=== PATIENT | female | born 1970 | race Caucasian/White ===

== ENCOUNTER 2017-01-09 22:48 | Inpatient (IN) | payer MEDICAID, OTHER ==
[~2017-01-09] VITALS: Ht 160 cm; Wt 99.8 kg
[2017-01-09 23:00] VITALS: BP 142/87
[2017-01-10] VITALS (14 sets, daily range): BP systolic 97–146; BP diastolic 62–87
--- NOTE | 2017-01-10 00:30 | NUR ---
Patient ambulated to bed 04.
--- NOTE | 2017-01-10 00:35 | NUR ---
46 Y/O F W/C/O R LOWER ABD PAIN, N/V/D X YESTERDAY. DENIES ANY FEVER. PT STATES HAS A HX OF HTN BUT DOES NOT REMMEMBER THE NAME OF MEDS SHE TAKES FOR IT. PT STATES HER PAIN IS 10/10. ER MADE AWARE.
[2017-01-10] MEDS ORDERED: ONDANSETRON 4 MG/2 ML VIAL IVP ONE ×4 (00:50→09:12)
[2017-01-10] MEDS ORDERED: NACL 0.9% 1,000 ML IV ONE (00:50)
[2017-01-10] MEDS ORDERED: HYDROmorphone 1 MG/ML AMP IVP ONE ×2 (00:50→03:55)
--- NOTE | 2017-01-10 00:52 | NUR ---
Dr. Merritt evaluating patient at bedside.
[2017-01-10 01:02] LABS: HEMATOCRIT 37.9 % (36-48); HEMOGLOBIN 11.7 g/dL (12.0-16.0); MEAN CORPUSCULAR HEMOGLOBIN 23 pg (27-31); MEAN CORPUSCULAR HGB CONC 31 g/dL (33-37); MEAN CORPUSCULAR VOLUME 76 fL (80-94); PLATELET COUNT (AUTO) 290 K/uL (140-450); RED BLOOD CELL COUNT(AUTO) 5.02 MIL/uL (4.20-5.40); RED CELL DISTRIBUTION WIDTH 15.9 % (11.6-13.7)
[2017-01-10 01:18] LABS: ALBUMIN 3.6 g/dL (3.4-5.0); ANION GAP 16.2 (8-16); CALCIUM 8.6 mg/dL (8.5-10.1); CARBON DIOXIDE 23.5 mmol/L (21-32); CREATININE 1.1 mg/dL (0.6-1.3); POTASSIUM 3.7 mmol/L (3.5-5.1); TOTAL BILIRUBIN 1.1 mg/dL (0.0-1.0); TOTAL PROTEIN, SERUM 8.2 g/dL (6.4-8.2)
[2017-01-10 01:23] LABS: BAND % (MANUAL) 26 % (0-8); LYMPHOCYTES % (MANUAL) 6 % (20-46); MONOCYTES % (MANUAL) 2 % (5-12); NEUTROPHILS % (MANUAL) 66 (43-65)
[2017-01-10 01:26] LABS: INR 1.2 (0.8-1.2); PARTIAL THROMBOPLASTIN TIME 31.8 secs (22-35.6); PROTHROMBIN TIME 12.6 secs (10.8-13.4)
--- NOTE | 2017-01-10 01:40 | NUR ---
Patient taken to CT via wheelchair per tech.
--- NOTE | 2017-01-10 01:51 | NUR ---
Patient back from CT via wheelchair per tech.
--- NOTE | 2017-01-10 02:10 | NUR ---
PT RESTING IN BED, AWATING FOR RESULTS ON MONITOR, VSS. WILL CONT TO MONITOR.
[2017-01-10 03:09] LABS: LACTIC ACID 1.7 mmol/L (0.4-2.0)
--- NOTE | 2017-01-10 04:00 | NUR ---
Patient will be admitted to care of DR GIVENS. Admited to TELEMETRY. Will go to room 127B. Belongings list completed. Report to LAURO PRESSLEY.
[2017-01-10] MEDS ORDERED: NACL 0.9% 1,000 ML IV SCH (04:14)
[2017-01-10] MEDS ORDERED: ACETAMINOPHEN 325 MG TAB PO PRN ×2 (04:15→05:00)
[2017-01-10] MEDS ORDERED: DOCUSATE SODIUM 100 MG GELCAP PO PRN (04:15)
[2017-01-10] MEDS ORDERED: HYDROcodone/APAP 7.5/325 MG 1 TAB PO PRN (04:15)
[2017-01-10] MEDS ORDERED: MORPHINE SULFATE 2 MG/ML SYR IVP PRN (04:15)
[2017-01-10] MEDS ORDERED: PIPERACILLIN/TAZOBACTAM 4.5 GM in DEXTROSE 5% 100 ML IV ONE (04:15)
[2017-01-10] MEDS ORDERED: ONDANSETRON 4 MG/2 ML VIAL IM/IVP PRN (04:15)
[2017-01-10] MEDS ORDERED: PIPERACILLIN/TAZOBACTAM 2.25 GM VIAL IV ONE (04:25)
--- NOTE | 2017-01-10 05:10 | NUR ---
PT TRASFERRED VIA GURNEY TO TELEMETRY, MONITOR ON BED, VSS, NO S/S OF DISTRESS NOTED DURING TRASFER. ACCOMPANIED BY RN AND EMT.
--- NOTE | 2017-01-10 05:20 | NUR ---
ADMITTED A 46F FROM ER. CAME BY GILMAR. ACCOMPANIED BY . AWAKE ALERT AND ORIENTED X4. AMBULATORY. MED SURG PT. CAME DUE TO ABDOMINAL PAIN AND VOMITING X2 DAYS. DX: PERFORATED DIVERTICULITIS. ONLY HISTORY IS HYPERTENSION. V/S TAKEN STABLE. HAS IV ACCESS ON RT AC # 20, CLEAR AND PATENT. ZOSYN IV GIVEN IN ER. PLAN OF CARE DISCUSSED AND VERBALIZED UNDERSTANDING. ORIENTED TO HOSPITAL ROUTINES. CALL LIGHT PLACED WITHIN EASY REACH. KEPT NPO ORDERED. WILL FOLLOW [facility] ADMIT ORDERS.
[2017-01-10] MEDS ORDERED: BUPIVACAINE-MPF/EPI 0.25% 30 ML VIAL INJ ONE (05:56)
[2017-01-10] MEDS ORDERED: PIPERACILLIN/TAZOBACTAM 3.375 GM in DEXTROSE 5% 50 ML IV SCH ×2 (06:00→12:00)
[2017-01-10] MEDS: FLUCONAZOLE 100 MG/NS PREMIX 50 ML IV SCH (06:00)
--- NOTE | 2017-01-10 06:25 | NUR ---
DR. SUTHERLAND SURGERY CONSULT CALLED WITH SOME ORDERS. PT FOR SURGERY . PT AND STILL WANTS TO TALK TO ENA BEFORE SURGERY. URINE SEND FOR UA, TEST. CXR ORDERED. TYPE AND SCREEN ALSO WAS ORDERED.
[2017-01-10] MEDS ORDERED: DEXAMETHASONE 4 MG/ML VIAL IVP ONE (06:26)
[2017-01-10] MEDS ORDERED: ROCURONIUM 50 MG/5 ML VIAL IV ONE ×2 (06:26→09:12)
[2017-01-10] MEDS ORDERED: LIDOCAINE 2% 100 MG/5 ML SYR IVP ONE (06:26)
[2017-01-10] MEDS ORDERED: NEOSTIGMINE 1:1000 10 MG/10 ML VIAL IV ONE (06:26)
[2017-01-10] MEDS ORDERED: DESFLURANE 240 ML BTL INH ONE (06:26)
[2017-01-10] MEDS ORDERED: PROPOFOL 200 MG/20 ML VIAL IV ONE ×2 (06:26→09:12)
[2017-01-10] MEDS ORDERED: GLYCOPYRROLATE 0.2 MG/ML VIAL IV ONE (06:26)
[2017-01-10] MEDS ORDERED: SUCCINYLCHOLINE CHLORIDE 200 MG/10 ML VIAL IV ONE ×2 (06:26→09:12)
[2017-01-10] MEDS ORDERED: ePHEDrine 50 MG/ML VIAL IV ONE (06:26)
--- NOTE | 2017-01-10 06:30 | NUR ---
GRAIN I FARMWORKER BY OR NURSE BY BED .
[2017-01-10] MEDS ORDERED: MIDAZOLAM 2 MG/2 ML VIAL ONE (06:39)
[2017-01-10] MEDS ORDERED: fentaNYL 0.05 MG/ML VIAL ONE ×2 (06:39→09:59)
--- NOTE | 2017-01-10 07:00 | NUR ---
[facility] PT. WENT TO OR AT 0630 FOR ALYCE HOROWITZ.
[2017-01-10] MEDS: ALBUTEROL 0.083% 2.5 MG/3 ML NEBU INH PRN (07:34)
[2017-01-10] MEDS ORDERED: ONDANSETRON 4 MG/2 ML VIAL IVP PRN (08:50)
[2017-01-10] MEDS ORDERED: HYDROmorphone 1 MG/ML AMP IVP PRN (08:50)
[2017-01-10] MEDS ORDERED: LACTOBACILLUS RHAMNOSUS GG 1 EACH CAP PO SCH (09:00)
--- NOTE | 2017-01-10 09:39 | NUR ---
RECEIVED PT FROM SURGERY PLACED ON [employer] PER ANESTHESIA A/C 12 VT 500 PEEP5 FIO2 50 PTS ET TUBE SECURED WITH ANCHOR FAST SIZE 8.0 23 CM BS CLEAR PT IN HF QUIET VENT PLUGGED INTO RED OUTLET BMV HOB Addendum: 01/10/17 at 1232 by Ernestina Ferro RT DR FELDER
--- NOTE | 2017-01-10 09:45 | NUR ---
RECEIVED REPORT FROM OR NURSE RAMIRES. PT ARRIVE ON UNIT BY GILMAR WITH OR NURSE, ANESTHESIOLOGIST, AND RT. SEDATED. UNRESPONSIVE TO PAIN. ETT TO VENT. A/C VC FIO2 50%, AC 12, PEEP 5, TV 500. ST ON MONITOR. R AC 20 GAUGE NOTED. INTACT AND PATENT. SKIN IS NONINTACT. POST OP ABDOMINAL MIDLINE INCISION NOTED. DRESSING CLEAN AND INTACT. COLOSTOMY BAG NOTED. WILLIAMSON CATHETER NOTED. DRAINING CLEAR YELLOW URINE. SAFETY PRECAUTION MAINTAINED. BED AT LOWEST SETTING. CALL LIGHT WITHIN REACH. WILL CONTINUE TO MONITOR. Addendum: 01/10/17 at 1010 by Estiven Elise RN V/S 132/62. P 127, TEMP 98.5 F, RR 17, O2 100%
--- NOTE | 2017-01-10 09:50 | NUR ---
WAS NOTIFIED BY ASSIGNED OR NURSE, PT TO BE TRANSFERRED TO ICU.
[2017-01-10] MEDS: DEXT 5% /NACL 0.9% 1,000 ML IV SCH ×3 (10:11→22:00)
--- NOTE | 2017-01-10 10:13 | NUR ---
FAMILY AT BEDSIDE TO SEE PT.
--- NOTE | 2017-01-10 10:53 | NUR ---
BP: 180/140, HR: 132. PT NOW OPENS EYES BUT DOES NOT FOLLOW COMMANDS, MOVES UPPER EXTREMITIES PERIODICALLY. WILL ADMINISTER MORPHINE ORDERED PRN. PAGED DR. JAMES, AWAITING CALLBACK.
[2017-01-10 10:56] LABS: ANION GAP 16.9 (8-16); CALCIUM 7.7 mg/dL (8.5-10.1); CARBON DIOXIDE 22.5 mmol/L (21-32); CREATININE 1.1 mg/dL (0.6-1.3); POTASSIUM 4.4 mmol/L (3.5-5.1)
[2017-01-10 10:57] LABS: BLOOD GAS BASE EXCESS -8.2 mmol/L (-2.0-2.0); BLOOD GAS HCO3 18.9 mmol/L; BLOOD GAS O2 SAT% 94.8 % (92.0-98.5); BLOOD GAS PCO2 45.4 mmHg (20-50); BLOOD GAS PH 7.238 (7.35-7.45); BLOOD GAS PO2 83.4 mmHg
--- NOTE | 2017-01-10 11:01 | NUR ---
CALL BACK RECEIVED FROM DR. JAMES. REPORTED ABNORMAL VITAL SIGNS. NEW ORDERS RECEIVED.
[2017-01-10] MEDS: MORPHINE SULFATE 4 MG/ML SYR IVP PRN ×2 (11:04→15:07)
[2017-01-10] MEDS ORDERED: hydrALAZINE 20 MG/ML VIAL IVP PRN (11:05)
--- NOTE | 2017-01-10 11:09 | NUR ---
ABG RESULTS REPORTED TO DR JULIO
--- NOTE | 2017-01-10 11:10 | NUR ---
DR JAMES OFFICE PAGED
--- NOTE | 2017-01-10 11:13 | NUR ---
DR. JULIO AT BEDSIDE TO SEE PT. WILL F/U WITH NEW ORDERS
[2017-01-10 11:38] LABS: HEMOGLOBIN 11.7 g/dL (12.0-16.0); MEAN CORPUSCULAR HEMOGLOBIN 24 pg (27-31); MEAN CORPUSCULAR HGB CONC 32 g/dL (33-37); MEAN CORPUSCULAR VOLUME 76 fL (80-94); PLATELET COUNT (AUTO) 307 K/uL (140-450); RED BLOOD CELL COUNT(AUTO) 4.88 MIL/uL (4.20-5.40); RED CELL DISTRIBUTION WIDTH 16.2 % (11.6-13.7); WHITE BLOOD COUNT (AUTO) 17.8 K/uL (4.8-10.8)
--- NOTE | 2017-01-10 11:46 | NUR ---
CM NOTE INITIAL REVIEW FAXED TO [facility] [phone] PH# VINCE [phone] DECEMBER [phone]
--- NOTE | 2017-01-10 11:47 | NUR ---
VENT CHECK BS CLEAR AIRWAY IS PATENT FAMILY PRESENT
[2017-01-10 12:00] LABS: NEUTROPHILS % (MANUAL) 53 (43-65)
[2017-01-10 12:01] LABS: BAND % (MANUAL) 33 % (0-8); LYMPHOCYTES % (MANUAL) 8 % (20-46); MONOCYTES % (MANUAL) 6 % (5-12)
--- NOTE | 2017-01-10 12:50 | NUR ---
MEDICATION GIVEN ORDERED. TOLERATED WELL.
[2017-01-10] MEDS: PIPER/TAZO 3.375GM/D5W PREMIX 50 ML IV SCH ×3 (13:06→23:23)
--- NOTE | 2017-01-10 13:33 | NUR ---
VENT CHECK BS CLEAR ET TUBE RETRACTED TO 22 CM PER REPORT WITHOUT INCIDENT
--- NOTE | 2017-01-10 15:30 | NUR ---
VENT CHECK BS CLEAR AIRWAY IS PATENT FAMILY BEDSIDE
--- NOTE | 2017-01-10 15:39 | NUR ---
PAGED DR. JAMES REGARDING ABG RESULTS. AWAITING CALLBACK.
--- NOTE | 2017-01-10 16:12 | NUR ---
RECEIVED CALLBACK FROM DR. JAMES. INFORMED HIM OF ABG RESULTS. PER DR. JAMES, PT TO START CPAP TRIAL WITH PRESSURE SUPPORT OF 10, WITH REPEAT ABG 30 MIN FROM THEN. INFORMED RONALD RT.
--- NOTE | 2017-01-10 16:18 | NUR ---
CHANGED PT TP CPAP 5 PS 10 FIO2 40 BS CLEAR PT ALERT IN HF FAMILY BEDSIDE
--- NOTE | 2017-01-10 16:23 | NUR ---
01/10/17 RD INITIAL ASSESSMENT COMPLETED PLEASE REFER TO NUTRITION ASSESSMENT UNDER CARE ACTIVITY FOR ESTIMATED NUTRITIONAL NEEDS. 1. IF PT TO REMAIN INTUBATED, WHEN MEDICALLY FEASIBLE, CONSIDER NGT PLACEMENT FOR EN SUPPORT - PEPTAMEN AF TO START AT 30 ML/HR AND ADVANCE 10 ML Q8H TO A GOAL RATE OF 55 ML/HR (PROVIDES 1584 KCAL, 100 G PROTEIN, 1066 ML FREE WATER - MEETS 98% KCAL + 85% PROTEIN ESTIMATED NEEDS) 2. IF PO DIET/EN SUPPORT NOT FEASIBLE BY DAY 5 OF HOSPITALIZATION (01/15/17), CONSIDER INITIATING PN SUPPORT ON OR AFTER DAY 5 (01/15/17) 3. RD TO FOLLOW-UP 2-3 DAYS; HIGH RISK LENI MURPHY, ANDRES
--- NOTE | 2017-01-10 16:40 | NUR ---
PT SLEEPING IN BED. CONTINUE CPAP ORDERED.
--- NOTE | 2017-01-10 16:43 | NUR ---
DR. JAMES AT BEDSIDE TO SEE PT. WILL F/U WITH NEW ORDERS.
--- NOTE | 2017-01-10 17:02 | NUR ---
VENT CHECK BS CLEAR ABG TO BE DONE
[2017-01-10 17:18] LABS: BLOOD GAS HCO3 21.8 mmol/L; BLOOD GAS O2 SAT% 95.8 % (92.0-98.5); BLOOD GAS PCO2 37.8 mmHg (20-50); BLOOD GAS PH 7.378 (7.35-7.45); BLOOD GAS PO2 77.8 mmHg
--- NOTE | 2017-01-10 17:36 | NUR ---
PT EXTUBATED 2 L N\C PLACE SPO2 96 PER ORDER BIPAP PRN PLACED AT BEDSIDE
--- NOTE | 2017-01-10 19:13 | NUR ---
REPORT GIVEN TO LAURO BOSE. PT IS STABLE.
[2017-01-10] MEDS: MORPHINE SULFATE 2 MG/ML SYR IVP PRN (19:27)
--- NOTE | 2017-01-10 19:30 | NUR ---
RECEIVED REPORT FROM AM RN AT BEDSIDE, PT IS AAOX4, ABLE TO FOLLOW COMMANDS AND MAKE NEEDS KNOWN, VSS, C/O PAIN TO ABDOMEN SURGICAL AREA 12/25, NO SOB/DISTRESS, CLEAR LUNG SOUNDS, ON O2 AT 2L VIA NC, DENIES CHEST PAIN, ST ON COMMUNITY ARTS CENTRE MANAGER, SOFT ABDOMEN WITH ACTIVE BOWEL SOUNDS, NPO STATUS, SURGICAL WOUND SITE TO MIDDLE ABDOMEN, COVERED WITH DRESSING, OOZING NOTED, MD AWARE PER REPORT, COLOSTOMY TO LEFT SIDE OF ABDOMEN, COLOSTOMY BAG IN PLACE. WILLIAMSON CATHETER IN PLACE WITH YELLOW CLEAR URINE DRAINING WELL VIA GRAVITY, GENERALIZED WEAKNESS TO ALL EXTREMITIES, SCD'S ON BLE, IV SITE TO RIGHT AC 20GA RUNNING D5NS AT 100 ML/HR. SKIN IS WARM AND DRY TO TOUCH, EXPLAINED PLAN OF CARE TO PATIENT, PATIENT VERBALIZED UNDERSTANDING, SAFETY MEASURES IN PLACE, CALL LIGHT WITHIN REACH, WILL CONTINUE TO MONITOR.
--- NOTE | 2017-01-10 22:00 | NUR ---
NO S/S OF DISTRESS, ON O2 AT 2L VIA NC WITH O2 SAT AT 98%, VSS, POSITION CHANGED FOR OFF LOAD PRESSURE, FAMILY MEMBERS AT BEDSIDE.
[2017-01-11] VITALS: BP 126/74
--- NOTE | 2017-01-11 | NUR ---
PT IS ASLEEP IN BED, NO CHANGE OF CONDITION AT THIS TIME, VSS. POSITION CHANGED FOR OFF LOAD PRESSURE.
[2017-01-11 02:00] VITALS: BP 123/65
--- NOTE | 2017-01-11 02:00 | NUR ---
NO S/S OF DISTRESS, STILL ON O2 AT 2L VIA NC, O2 SAT AT 97%, POSITION CHANGED FOR OFF LOAD PRESSURE.
[2017-01-11] MEDS: MORPHINE SULFATE 2 MG/ML SYR IVP PRN ×2 (03:06→09:26)
[2017-01-11 04:00] VITALS: BP 124/79
--- NOTE | 2017-01-11 04:00 | NUR ---
NO CHANGE OF CONDITION AT THIS TIME, PT C/O PAIN TO ABDOMEN AREA, 11/24, WILL EDUCATED AND MEDICATED. POSITION CHANGED FOR OFF LOAD PRESSURE, AM CARE PROVIDED, ORAL CARE PROVIDED, PT TOLERATED WELL.
[2017-01-11] MEDS: FLUCONAZOLE 100 MG/NS PREMIX 50 ML IV SCH (05:18)
[2017-01-11 05:38] LABS: ANION GAP 11.1 (8-16); CALCIUM 7.8 mg/dL (8.5-10.1); CARBON DIOXIDE 25.9 mmol/L (21-32); CREATININE 0.8 mg/dL (0.6-1.3)
[2017-01-11 05:42] LABS: MAGNESIUM 2.1 mg/dL (1.8-2.4); PHOSPHORUS 2.6 mg/dL (2.5-4.9)
[2017-01-11 05:45] LABS: HEMATOCRIT 32.6 % (36-48); HEMOGLOBIN 10.1 g/dL (12.0-16.0); MEAN CORPUSCULAR HEMOGLOBIN 24 pg (27-31); MEAN CORPUSCULAR HGB CONC 31 g/dL (33-37); MEAN CORPUSCULAR VOLUME 76 fL (80-94); PLATELET COUNT (AUTO) 260 K/uL (140-450); RED CELL DISTRIBUTION WIDTH 16.2 % (11.6-13.7); WHITE BLOOD COUNT (AUTO) 14.6 K/uL (4.8-10.8)
[2017-01-11 06:00] VITALS: BP 142/82
--- NOTE | 2017-01-11 06:00 | NUR ---
NO S/S OF DISTRESS, VSS. POSITION CHANGED FOR OFF LOAD PRESSURE.
[2017-01-11] MEDS: PIPER/TAZO 3.375GM/D5W PREMIX 50 ML IV SCH ×4 (06:04→23:57)
[2017-01-11 06:28] LABS: BAND % (MANUAL) 23 % (0-8); LYMPHOCYTES % (MANUAL) 7 % (20-46); MONOCYTES % (MANUAL) 9 % (5-12); NEUTROPHILS % (MANUAL) 61 (43-65)
--- NOTE | 2017-01-11 07:15 | NUR ---
RECEIVED REPORT FROM LAURO FERRARI. PT IS ALERT AND ORIENTED X4. VERBALLY RESPONSIVE. ABLE TO MAKE NEEDS KNOWN. NO C/O PAIN OR DISCOMFORT. BILATERAL PERRLA NOTED IN EYES. PT ON 2 L NC, SATURATING AT 98%. TOLERATING WELL. ST ON MONITOR. R AC 20 GAUGE NOTED. INTACT AND PATENT. SKIN IS NONINTACT. POST OP ABDOMINAL MIDLINE INCISION NOTED. DRESSING INTACT. COLOSTOMY BAG NOTED. PT ABLE TO MOVE ALL EXTREMITIES WITH SOME WEAKNESS. WILLIAMSON CATHETER NOTED. DRAINING CLEAR YELLOW URINE. SAFETY PRECAUTION MAINTAINED. BED AT LOWEST SETTING. CALL LIGHT WITHIN REACH. WILL CONTINUE TO MONITOR.
--- NOTE | 2017-01-11 07:30 | NUR ---
WILLIAMSON CATHETER D/C. 8 CC BALLOON DRAINED. PT TOLERATED PROCEDURE WELL. NO ABNORMALITIES NOTED. WILL CONTINUE MONITORING FOR ABILITY TO VOID.
--- NOTE | 2017-01-11 07:34 | NUR ---
DR. SUTHERLAND PAGED FOR PT. AWAITING CALL BACK.
--- NOTE | 2017-01-11 07:38 | NUR ---
RECEIVED CALL BACK FROM DR. SUTHERLAND. PER , DOCTOR WILL BE ON UNIT LATER TODAY.
[2017-01-11 08:00] VITALS: BP 140/85
--- NOTE | 2017-01-11 09:02 | NUR ---
AWA NOTE FAXED ORDER FOR COLOSTOMY CARE AT HOME TO [facility] [phone]. SPOKE WITH REJI MEIER PH [phone] AND SHE SAID TO USE [facility] FOR COLOSTOMY SUPPLIES. SPOKE WITH MARCIANO OF [facility] PH [phone] AND HE SAID THEY ARE NOT TAKING NEW REFERRALS BECAUSE THE COMPANY IS WINDING DOWN THEIR OPERATIONS IN [place]. LEFT A MESSAGE TO AWA MEIER TO INFORM HER.
--- NOTE | 2017-01-11 09:10 | NUR ---
PENG FROM [facility] CALLED. MADE AWARE THAT WE STILL NEED IN PT PSYCH. HOSPITALIZATION FOR THE PT. STATED THAT THEY HAVE RECEIVED AND WILL REVIEW THE PT'S RECORDS.
[2017-01-11] MEDS ORDERED: PROBIOTIC SCREEN 1 EA MISC MC PRN (09:20)
[2017-01-11] MEDS: DEXT 5% /NACL 0.9% 1,000 ML IV SCH (09:25)
--- NOTE | 2017-01-11 09:26 | NUR ---
PT COMPLAINED OF 4/10 PAIN ON INCISION. PAIN MEDICATION GIVEN ORDERED. V/S BP 169/101, P 106, RR 40. WILL CONTINUE TO MONITOR. PO MEDICATION NOT GIVEN D/T PT BEING NPO. WILL CONSULT .
[2017-01-11] MEDS ORDERED: LACTOBACILLUS RHAMNOSUS GG 1 EACH CAP PO SCH (09:30)
--- NOTE | 2017-01-11 09:30 | NUR ---
DR. JAMES PAGED REGARDING PT. AWAITING CALL BACK.
--- NOTE | 2017-01-11 09:50 | NUR ---
RECEIVED CALL BACK FROM DR. JAMES. ORDERS RECEIVED, WILL CARRY OUT.
--- NOTE | 2017-01-11 10:30 | NUR ---
PT STATED URGE TO VOID. ABLE TO VOID ONE TIME ON PRABHA. YELLOW URINE NOTED.
--- NOTE | 2017-01-11 11:00 | NUR ---
AT BEDSIDE TO SEE PT.
--- NOTE | 2017-01-11 11:29 | NUR ---
FAMILY AT BEDSIDE TO SEE PT.
--- NOTE | 2017-01-11 11:39 | NUR ---
CM NOTE CONCURRENT REVIEW FAXED TO [facility] [phone] VINCE [phone]
--- NOTE | 2017-01-11 12:15 | NUR ---
PT WITH PHYSICAL THERAPY.
--- NOTE | 2017-01-11 12:25 | NUR ---
REPORT GIVEN TO LEEAN BETANCOURT. ALL QUESTIONS ANSWERED. PT IS TRANSFERRING TO [facility] VIA WHEELCHAIR. PT IS STABLE.
--- NOTE | 2017-01-11 12:40 | NUR ---
RECEIVED FROM ICU VIA WHEELCHAIR. NO SIGNS AND SYMPTOMS OF ACUTE DISTRESS NOTED. KEEP COMFORTABLE ON BED. EXPLAINED DIAGNOSIS, PLAN OF CARE, POST-OP CARE, PAIN MANAGEMENT TEACHING, COLOSTOMY CARE, USE OF CALL LIGHT/BED/TV/BATHROOM. VERBALIZED UNDERSTANDING. CALL LIGHT WITHIN REACH.
--- NOTE | 2017-01-11 14:12 | NUR ---
Patient's Plan of Care was discussed and reviewed with HEEL PRICKER: SERAFIN HARRIS
[2017-01-11 16:00] VITALS: BP 146/95
--- NOTE | 2017-01-11 18:00 | NUR ---
DR. SUTHERLAND CAME SPOKE TO PT. AND PT. -KELI, CHANGED ABD DRESSING AND COLOSTOMY BAG. TOLERATED WELL. KEEP COMFORTABLE ON BED.
--- NOTE | 2017-01-11 19:05 | NUR ---
BEDSIDE REPORT GIVEN TO ALEX NETTLES. IN STABLE CONDITION.
--- NOTE | 2017-01-11 19:07 | NUR ---
PAGED DR. LOCKHART AND SPOKE TO ROGELIO REGARDING CONSULT. LEFT CALL BACK NUMBER. ENDORSED TO ALEX NETTLES.
--- NOTE | 2017-01-11 19:24 | NUR ---
RECEIVED FROM AM RN IN BED AWAKE AND ALERT. NO SOB. COLOSTOMY IN PLACE. CALL LIGHT WITH IN REACH AND CARE PLANS DISCUSSED WITH HER. S/P EXPLORE LAP 01/10/17 . NO BLEEDING NOTED. CARE PLANS FOR THE NIGHT DISCUSSED WITH HER . BILATERAL SEQUENTIALS LOWER EXTREMITIES IN PLACE.
[2017-01-11] MEDS: ONDANSETRON 4 MG/2 ML VIAL IVP PRN (21:52)
--- NOTE | 2017-01-11 22:00 | NUR ---
PT. MEDICATED WITH ANTI NAUSEA REQUESTED RT FEELING OF BEING NAUSEOUS. MEDICATED REQUESTED. CALL LIGHT WITH IN REACH. COLOSTOMY BAG INTACT AND DRESSING TO ABDOMEN INTACT. NO BLEEDING .
[2017-01-12] VITALS: BP 148/90
--- NOTE | 2017-01-12 | NUR ---
SLEEPING AT THIS TIME WITH SPOUSE WATCHING OVER HER. NO RESTLESSNESS NOTED.
[2017-01-12] MEDS: POTASSIUM CHL 20 MEQ/D5-1/2NS 1,000 ML IV SCH ×5 (00:02→23:55)
[2017-01-12] MEDS: ONDANSETRON 4 MG/2 ML VIAL IVP PRN (03:22)
[2017-01-12] MEDS: PIPER/TAZO 3.375GM/D5W PREMIX 50 ML IV SCH ×3 (05:15→18:30)
--- NOTE | 2017-01-12 06:10 | NUR ---
PT. SITTING IN CHAIR AND WITH GOOD AFFECT. NO SOB. DENIES PAIN. PT. ABLE TO VERBALIZE NEEDS WELL. NO BLEEDING TO ABDOMINAL INCISION . ABLE TO URINATE IN BED R[place].
[2017-01-12 06:14] LABS: ANION GAP 13.4 (8-16); CALCIUM 8.1 mg/dL (8.5-10.1); CARBON DIOXIDE 25.4 mmol/L (21-32); CREATININE 0.8 mg/dL (0.6-1.3); POTASSIUM 3.8 mmol/L (3.5-5.1)
[2017-01-12 06:15] LABS: BASOPHILS # (AUTO) 0.1 K/uL (0.00-0.22); BASOPHILS % (AUTO) 0.3 % (0.0-2.0); EOSINOPHILS # (AUTO) 0.1 K/uL (0-0.4); EOSINOPHILS % (AUTO) 0.8 % (0.0-4.0); HEMATOCRIT 32.5 % (36-48); HEMOGLOBIN 10.4 g/dL (12.0-16.0); LYMPHOCYTES # (AUTO) 1.2 K/uL (2.5-16.5); LYMPHOCYTES % (AUTO) 7.1 % (20.5-51.1); MEAN CORPUSCULAR HEMOGLOBIN 24 pg (27-31); MEAN CORPUSCULAR HGB CONC 32 g/dL (33-37); MEAN CORPUSCULAR VOLUME 75 fL (80-94); MONOCYTES % (AUTO) 5.7 % (1.7-9.3); NEUTROPHILS # (AUTO) 14.8 K/uL (1.8-7.7); NEUTROPHILS % (AUTO) 86.1 % (42.2-75.2); PLATELET COUNT (AUTO) 338 K/uL (140-450); RED BLOOD CELL COUNT(AUTO) 4.35 MIL/uL (4.20-5.40); RED CELL DISTRIBUTION WIDTH 16.5 % (11.6-13.7); WHITE BLOOD COUNT (AUTO) 17.2 K/uL (4.8-10.8)
[2017-01-12 06:25] LABS: MAGNESIUM 2.2 mg/dL (1.8-2.4)
--- NOTE | 2017-01-12 06:27 | NUR ---
COLOSTOMY BAG NO OUTPUT NOTED. SITTING IN CHAIR. ABLE TO VERBALIZE WELL.
--- NOTE | 2017-01-12 07:00 | NUR ---
RECEIVED REPORT FROM LAURO JOHNSON. PT IS RESTING IN BED, PT IS A/OX4, AMBULATORY, PT HAS IV ON THE LT HAND, PATENT, INTACT, INFUSING WELL, PT HAS A COLOSTOMY BAG ON THE LEFT SIDE OF HER ABDOMEN, NO S/S OF RESPIRATORY DISTRESS OR DISCOMFORT NOTED, DISCUSSED PLAN OF CARE WITH PT, PT VERBALIZED UNDERSTANDING, SAFETY/FALL PRECAUTIONS ARE IN PLACE, FAMILY IS AT BEDSIDE, CALL LIGHT WITHIN REACH WILL CONTINUE TO MONITOR.
--- NOTE | 2017-01-12 07:15 | NUR ---
ENDORSED PT TO LEENA ESCOBAR FOR CONTINUITY OF CARE. PT STABLE AT THIS TIME.
[2017-01-12 08:00] VITALS: BP 153/93
[2017-01-12] MEDS: LACTOBACILLUS RHAMNOSUS GG 1 EACH CAP PO SCH (09:30)
[2017-01-12] MEDS: ENOXAPARIN 40 MG/0.4 ML SYR SUBQ SCH (09:34)
--- NOTE | 2017-01-12 13:02 | NUR ---
01/12/17 RD FOLLOW-UP ASSESSMENT COMPLETED PLEASE REFER TO NUTRITION ASSESSMENT UNDER CARE ACTIVITY FOR ESTIMATED NUTRITIONAL NEEDS. 1. CONTINUE CLEAR LIQUID DIET, ADVANCE ASO TOLERATED TO SOFT/BLAND DIET 2. ADD BOOST BREEZE TID 3. RD TO FOLLOW-UP 2-3 DAYS; HIGH RISK LENI MURPHY, ANDRES
--- NOTE | 2017-01-12 15:11 | NUR ---
PHYSICAL THERAPY CO-SIGN The Physical Therapy Progress Notes documented by Stoneworking Sander have been reviewed. Reviewed/Co-Signed by: Abida Soliz PT Documentation Done by:ALEXEI WANG CHLORINATION OPERATOR PROGRESSING W/ GAIT ENDURANCE; WILL BENEFIT W/ P.T. DURING ACUTE STAY; HAS FWW AT HOME; WILL SCHEDULE FAMILY TRNG. Addendum: 01/12/17 at 1514 by Abida Soliz PT Amended: Links added. Addendum: 01/12/17 at 1542 by Abida Soliz PT LEFT VM FOR JAQUELINE) [phone] FOR FAMILY TRNG 01/13/17 THURS AROUND 10 AM; WILL FOLLOW UP TOMORROW.
[2017-01-12 16:00] VITALS: BP 151/98
--- NOTE | 2017-01-12 19:20 | NUR ---
RECD. SITTING BESIDE BED, AWAKE, A/OX4. RESPIRATION EVEN AND UNLABORED. IV OF D51/2 NS WITH 20 MEQ KCL INFUSING AT 100 ML/HR. LEFT HAND G22. COLOSTOMY BAG AT THE LEFT SIDE OF ABDOMEN, NO OUTPUT NOTED. ON CLEAR LIQUID DIET. PLAN OF CARE FOR THE SHIFT DISCUSSED. VERBALIZE UNDERSTANDING. DENIES PAIN 0/10, NO N/V NOTED. FAMILY AT THE BEDSIDE.
--- NOTE | 2017-01-12 20:00 | NUR ---
Patient's Plan of Care was discussed and reviewed with BLOCK CAPTAIN: BRETT.
--- NOTE | 2017-01-12 21:30 | NUR ---
DR. LOCKHART CAME, NO NEW ORDER FOR PATIENT.
--- NOTE | 2017-01-12 21:30 | NUR ---
NO NAUSEA NOTED. INSTRUCTED TO CALL NURSE IF NEEDING JUICES OR GELATIN. VERBALIZED UNDERSTANDING.
--- NOTE | 2017-01-12 22:00 | NUR ---
REMINDED TO USE INCENTIVE SPIROMETER. STATED SHE IS USING IT. PUT ON AGAIN BILATERAL SEQUENTIALS. AWARE OF ITS BENEFICIAL EFFECTS.
[2017-01-13] VITALS: BP 155/103
[2017-01-13] MEDS: PIPER/TAZO 3.375GM/D5W PREMIX 50 ML IV SCH ×5 (00:40→23:59)
[2017-01-13] MEDS: ALUMINUM HYD/MAG/SIMETHICONE 30 ML UDC PO PRN ×2 (01:01→18:31)
--- NOTE | 2017-01-13 01:01 | NUR ---
COMPLAINT OF GAS PAIN, MEDICATED WITH MAALOX ORDERED.
[2017-01-13 01:41] VITALS: BP 143/94
--- NOTE | 2017-01-13 02:05 | NUR ---
PASSING GAS, FEELS BETTER. RESTING AWAKE IN BED, ADVISED TO GO TO SLEEP.
--- NOTE | 2017-01-13 05:30 | NUR ---
ASSISTED OUT OF BED TO GO GO BR. PASSING GAS, VERY MINIMAL REDDISH BROWN LIQUID COMING OUT OF COLOSTOMY BAG.
[2017-01-13 06:16] LABS: HEMATOCRIT 29.5 % (36-48); HEMOGLOBIN 9.4 g/dL (12.0-16.0); MEAN CORPUSCULAR HEMOGLOBIN 24 pg (27-31); MEAN CORPUSCULAR HGB CONC 32 g/dL (33-37); MEAN CORPUSCULAR VOLUME 75 fL (80-94); PLATELET COUNT (AUTO) 311 K/uL (140-450); RED BLOOD CELL COUNT(AUTO) 3.96 MIL/uL (4.20-5.40); RED CELL DISTRIBUTION WIDTH 16.5 % (11.6-13.7)
[2017-01-13 06:27] LABS: ANION GAP 9.9 (8-16); CALCIUM 7.4 mg/dL (8.5-10.1); CARBON DIOXIDE 28.5 mmol/L (21-32); CREATININE 0.7 mg/dL (0.6-1.3); POTASSIUM 3.4 mmol/L (3.5-5.1)
[2017-01-13 06:38] LABS: PHOSPHORUS 2.7 mg/dL (2.5-4.9)
--- NOTE | 2017-01-13 07:00 | NUR ---
CONDITION REMAIN STABLE. WILL ENDORSE TO AM NURSE FOR CONTINUITY OF CARE.
--- NOTE | 2017-01-13 07:20 | NUR ---
ENDORSED TO LAURO DUMONT FOR CONTINUITY OF CARE.
--- NOTE | 2017-01-13 07:21 | NUR ---
RECEIVED REPORT FROM NIGHT NURSE AT PT BEDSIDE. PT RESTING IN BED. NO S/S OF ACUTE DISTRESS. PT DENIES PAIN. ON ROOM AIR. IV SITE PATENT AND INTACT. DENIES N/V. PT HAS COLOSTOMY IN PLACE TO LUQ, DRAINING LIQUID STOOL. ABDOMINAL INCISION INTACT AND DRY. CALL LIGHT WITHIN REACH. AAOX4. AMBULATORY.
[2017-01-13 07:38] LABS: BASOPHILS % (MANUAL) 1 % (0-2); EOSINOPHILS % (MANUAL) 0 % (0-4); LYMPHOCYTES % (MANUAL) 9 % (20-46); MONOCYTES % (MANUAL) 5 % (5-12); NEUTROPHILS % (MANUAL) 85 (43-65)
[2017-01-13 08:00] VITALS: BP 155/86
[2017-01-13] MEDS: POTASSIUM CHL 20 MEQ/D5-1/2NS 1,000 ML IV SCH ×2 (08:28→17:05)
[2017-01-13] MEDS: LACTOBACILLUS RHAMNOSUS GG 1 EACH CAP PO SCH (08:40)
[2017-01-13] MEDS: ENOXAPARIN 40 MG/0.4 ML SYR SUBQ SCH (08:41)
[2017-01-13] MEDS: ALBUTEROL 0.083% 2.5 MG/3 ML NEBU INH PRN (09:48)
--- NOTE | 2017-01-13 09:49 | NUR ---
HHN PRN THERAPY STOPPED AT THIS TIME DUE TO NAUSEA AND EMESIS BIPAP VISION AT BEDSIDE FOR PRN RESPIRATORY DISTRESS
--- NOTE | 2017-01-13 10:47 | NUR ---
PATIENT SEEN BY PHYSICAL THERAPY. PT AMBULATED AROUND NURSING STATION. NO S/S OF ACUTE DISTRESS NOTED. FAMILY AT BEDSIDE.
[2017-01-13] MEDS ORDERED: ORE25 PO (11:22)
[2017-01-13] MEDS ORDERED: POTASSIUM CHLORIDE 20% 40 MEQ/15 ML UDC PO SCH (12:00)
--- NOTE | 2017-01-13 12:00 | NUR ---
ASSISTED PATIENT IN BATHING. ABDOMINAL DRESSING CHANGED. COLOSTOMY BAG LEAKED, CHANGED. NO S/S OF ACUTE DISTRESS.
--- NOTE | 2017-01-13 14:20 | NUR ---
PATIENT SEEN BY DR. JULIO. NO S/S OF ACUTE DISTRESS.
--- NOTE | 2017-01-13 14:21 | NUR ---
PHYSICAL THERAPY CO-SIGN The Physical Therapy Progress Notes documented by Roll Repairer have been reviewed. Reviewed/Co-Signed by: Ayanna Dyer PT Documentation Done by: JESSIKA NOBLES JOINT SEALER PT PROGRESSING STEADILY GOOD FAMILY INVOLVEMENT AND UNDERSTANDELBERT PUGA FAMILY EDUCATION PROVIDED TODAY. Addendum: 01/13/17 at 1422 by Ayanna Dyer PT Amended: Links added.
--- NOTE | 2017-01-13 15:05 | NUR ---
PATIENT SEEN BY DR. SUTHERLAND. NO NEW ORDERS. ADVANCE DIET TOLERATED
[2017-01-13 16:00] VITALS: BP 144/94
[2017-01-13] MEDS ORDERED: HYDROCHLOROTHIAZIDE 25 MG TAB PO SCH (17:07)
--- NOTE | 2017-01-13 18:04 | NUR ---
PATIENT SITTING UP AT BEDSIDE. NO S/S OF ACUTE DISTRESS.
--- NOTE | 2017-01-13 19:42 | NUR ---
ENDORSED PLAN OF CARE TO NURSE LUZ AT PT BEDSIDE. NO S/S OF ACUTE DISTRESS NOTED.
--- NOTE | 2017-01-13 19:43 | NUR ---
RECD. SITTING ON BED, AWAKE, A/OX4. RESPIRATION EVEN AND UNLABORED. ON 02 AT 2 LITERS VIA N/C, SATURATING 95%. IV OF D51/2 NS + 20 MEQ KCL INFUSING AT 100 ML/HR, LEFT HAND G 22. INCISION IN THE ABDOMEN COVERED WITH GAUZE DRESSING DRY AND INTACT. COLOSTOMY BAG INTACT, DRAINING MINIMAL BROWNISH FLUID. TOLERATING FULL LIQUID DIET. COMPLAINT OF PHLEGM IN HER THROAT. ENCOURAGED TO CONTINUE USING INCENTIVE SPIROMETER, DRINK MORE FLUIDS. PLAN OF CARE FOR THE SHIFT DISCUSSED. VERBALIZED UNDERSTANDING. DENIES PAIN 0/10. AT THE BEDSIDE.
--- NOTE | 2017-01-13 20:00 | NUR ---
DISCUSSED WITH LINE AERONAUTICAL ENGINEER PLAN OF CARE.
--- NOTE | 2017-01-13 20:30 | NUR ---
NO APPETITE TO EAT. AFRAID THAT SHE MIGHT VOMIT IF SHE ATE SOLID FOODS. ADVISED TO TAKE SMALL AMOUNT FIRST, PREFERABLY FOODS THAT ARE EASY TO DIGEST, THEN GRADUALLY INCREASED AMOUNT.
--- NOTE | 2017-01-13 23:30 | NUR ---
SLEEPING COMFORTABLY IN BED.
[2017-01-14] VITALS: BP 149/86
--- NOTE | 2017-01-14 01:00 | NUR ---
AWAKE IN BED, STATED SHE HAD ALREADY SLEPT FOR A FEW HOURS. NO COMPLAINT OF PAIN 0/10.
--- NOTE | 2017-01-14 04:00 | NUR ---
RESTING IN BED AWAKE, NO COMPLAINT OF PAIN 0/10.
[2017-01-14] MEDS: POTASSIUM CHL 20 MEQ/D5-1/2NS 1,000 ML IV SCH ×2 (05:23→15:55)
--- NOTE | 2017-01-14 06:00 | NUR ---
EMPTY 180 ML YELLOWISH LIQUID FROM COLOSTOMY BAG, CLEANSED AND MADE PATIENT COMFORTABLE IN BED.
[2017-01-14] MEDS: PIPER/TAZO 3.375GM/D5W PREMIX 50 ML IV SCH ×2 (06:12→11:12)
[2017-01-14 06:21] LABS: BASOPHILS # (AUTO) 0.1 K/uL (0.00-0.22); BASOPHILS % (AUTO) 0.5 % (0.0-2.0); EOSINOPHILS # (AUTO) 0.2 K/uL (0-0.4); HEMOGLOBIN 9.3 g/dL (12.0-16.0); MEAN CORPUSCULAR HEMOGLOBIN 23 pg (27-31); MEAN CORPUSCULAR HGB CONC 31 g/dL (33-37); WHITE BLOOD COUNT (AUTO) 10.6 K/uL (4.8-10.8)
[2017-01-14 06:43] LABS: CALCIUM 7.5 mg/dL (8.5-10.1); CARBON DIOXIDE 29.2 mmol/L (21-32); CREATININE 0.6 mg/dL (0.6-1.3); POTASSIUM 3.2 mmol/L (3.5-5.1)
--- NOTE | 2017-01-14 06:45 | NUR ---
CONDITION REMAIN STABLE. WILL ENDORSE TO AM NURSE FOR CONTINUITY OF CARE.
[2017-01-14 06:58] LABS: MEAN CORPUSCULAR VOLUME 75 fL (80-94); PLATELET COUNT (AUTO) 342 K/uL (140-450); RED BLOOD CELL COUNT(AUTO) 4.01 MIL/uL (4.20-5.40); RED CELL DISTRIBUTION WIDTH 16.7 % (11.6-13.7)
[2017-01-14 06:59] LABS: LYMPHOCYTES # (AUTO) 2.1 K/uL (2.5-16.5); LYMPHOCYTES % (AUTO) 20.1 % (20.5-51.1); MONOCYTES % (AUTO) 9.7 % (1.7-9.3); NEUTROPHILS # (AUTO) 7.2 K/uL (1.8-7.7); NEUTROPHILS % (AUTO) 67.7 % (42.2-75.2)
[2017-01-14 07:12] LABS: MAGNESIUM 1.9 mg/dL (1.8-2.4); PHOSPHORUS 2.6 mg/dL (2.5-4.9)
--- NOTE | 2017-01-14 07:25 | NUR ---
ENDORSED TO LAURO DUMONT FOR CONTINUITY OF CARE.
--- NOTE | 2017-01-14 07:26 | NUR ---
RECEIVED REPORT FROM NIGHT NURSE AT PT BEDSIDE. PT RESTING IN BED. NO S/S OF ACUTE DISTRESS. DENIES FEELING SOB. AAOX4. COLOSTOMY TO LIQUID STOOL IN MODERATE AMOUNT. ABDOMINAL INCISION DRY AND INTACT. IV SITE PATENT AND INTACT. CALL LIGHT WITHIN REACH. WILL CONTINUE TO MONITOR.
[2017-01-14 08:00] VITALS: BP 137/91
[2017-01-14] MEDS: LACTOBACILLUS RHAMNOSUS GG 1 EACH CAP PO SCH (08:59)
[2017-01-14] MEDS ORDERED: POTASSIUM CHLORIDE 20% 40 MEQ/15 ML UDC PO SCH (09:00)
[2017-01-14] MEDS ORDERED: HYDROCHLOROTHIAZIDE 25 MG TAB PO SCH (09:00)
[2017-01-14] MEDS: ENOXAPARIN 40 MG/0.4 ML SYR SUBQ SCH (09:00)
[2017-01-14] MEDS ORDERED: HYDROcodone/APAP 5/325 MG 1 TAB TAB PO PRN (11:00)
--- NOTE | 2017-01-14 11:00 | NUR ---
ASSISTED PATIENT IN EMPTYING COLOSTOMY BAG. PATIENT TEACHING GIVEN, VERBALIZED UNDERSTANDING. ALL NEEDS MET.
[2017-01-14] MEDS ORDERED: POTASSIUM CHLORIDE 10 MEQ TABER PO SCH ×2 (11:04→14:00)
[2017-01-14] MEDS: ALUMINUM HYD/MAG/SIMETHICONE 30 ML UDC PO PRN (12:29)
--- NOTE | 2017-01-14 13:18 | NUR ---
PT SEEN BY DR. SUTHERLAND AT BEDSIDE.
--- NOTE | 2017-01-14 14:00 | NUR ---
DR. SUTHERLAND SPOKE WITH PATIENT AND FAMILY REGARDING PLAN OF CARE AND DISCHARGE. DR. SUTHERLAND SPOKE WITH DR. JULIO REGARDING DISCHARGE PLANNING. COLOSTOMY CARE TEACHING GIVEN TO PATIENT AND FAMILY.
--- NOTE | 2017-01-14 14:15 | NUR ---
01/14/17 1. CONTINUE REGULAR DIET 2. RD FOLLOW-UP, MODERATE RISK 3-[address]
--- NOTE | 2017-01-14 15:35 | NUR ---
SS NOTE: PER JOYCE FROM [facility] ([phone]), THEY ARE ABLE TO ACCEPT PT AND WILL CALL PT'S TO SCHEDULE A TIME FOR DELIVERY. SHE STATED THAT THEY WILL DELIVER COLOSTOMY BAGS, GAUZE, DEODORANT FOR THE COLOSTOMY BAGS AND SKIN BARRIER WIPES. I SPOKE WITH PT BEDSIDE AND PROVIDED HER WITH THE ABOVE INFORMATION. I ALSO GAVE HER JAYSON'S CONTACT INFORMATION. I INFORMED HER THAT [facility] DO NOT ACCEPT [facility] AND CAN GET A THOMAS MASON PER VISIT FOR HER. PT STATED THAT SHE DOES NOT FEEL THAT SHE NEEDS HOME HEALTH SERVICES SINCE SHE AND HER HAVE BEEN PROVIDED TEACHING ON COLOSTOMY CARE.
[2017-01-14] MEDS ORDERED: LEVO750T2 PO (15:56)
[2017-01-14] MEDS ORDERED: METR250T2 PO (15:57)
[2017-01-14] MEDS ORDERED: HYDR-4446 PO (15:59)
[2017-01-14 16:00] VITALS: BP 155/83
--- NOTE | 2017-01-14 16:00 | NUR ---
PATIENT SEEN BY DR. JULIO. PATIENT TO BE DISCHARGED HOME WITH FOLLOW UP APPOINTMENTS. COLOSTOMY SUPPLIES GIVEN TO PATIENT UNTIL PATIENT WILL BE SUPPLIED ON COMING TUESDAY. PATIENT AND VERBALIZED UNDERSTANDING OF COLOSTOMY CARE.
--- NOTE | 2017-01-14 18:10 | NUR ---
DISCHARGE INSTRUCTIONS GIVEN, VERBALIZED UNDERSTANDING. F/U TEACHING AND APPOINTMENT DATES GIVEN. DISCHARGE MEDICATIONS GIVEN. IV REMOVED, CANULA INTACT. AAOX4. AMBULATORY. DRESSING DRY AND INTACT. FAMILY AT BEDSIDE TO TAKE PATIENT HOME. PATIENT WHEELED TO FRONT LOBBY.
== END 2017-01-14 18:00 | disposition home or self-care (01) | DRG 221 ==
LOC: MED 22:48 → MMU 01-10 05:02 → MIC 01-10 09:45 → MTU 01-11 12:37
PROVIDERS: ADMIT Hospitalist; ATTEND Hospitalist
PROC: 0D1M0Z4 Bypass Descending Colon to Cutaneous, Open Approach (ICD-10-PCS; 2017-01-10)
PROC: 5A1935Z Respiratory Ventilation, Less than 24 Consecutive Hours (ICD-10-PCS; 2017-01-10)
PROC: 0BH17EZ Insertion of Endotracheal Airway into Trachea, Via Natural or Artificial Opening (ICD-10-PCS; 2017-01-10)
PROC: 0DBN0ZZ Excision of Sigmoid Colon, Open Approach (ICD-10-PCS; principal; 2017-01-10 06:00)
DX: K57.20 Diverticulitis of large intestine with perforation and abscess without bleeding (principal); J95.821 Acute postprocedural respiratory failure; K65.0 Generalized (acute) peritonitis; N20.0 Calculus of kidney; E66.9 Obesity, unspecified; K56.7 Ileus, unspecified; Z68.39 Body mass index [BMI] 39.0-39.9, adult; K80.20 Calculus of gallbladder without cholecystitis without obstruction; I10 Essential (primary) hypertension; Z98.51 Tubal ligation status
CPT/HCPCS: 36415; 36600; 71010; 80048; 80053; 81025; 82803; 83605; 83735; 84100; 85025; 85610; 85730; 86886; 86900; 86901; 87040; 87070; 87075; 87081; 87186; 87205; 88307; 89220; 94002; 94640; 96361; 96365; 96375; 96376; 97110; 97116; 97140; 97530; 99285; J0330; J1100; J1170; J1450; J1650; J2001; J2250; J2270; J2405; J2543; J2704; J2710; J3010; J3490; J7030; J7042; J7060; J7613; Q0092